=== PATIENT | male | born 1930 | race Caucasian/White ===

== ENCOUNTER 2016-11-14 05:53 | Inpatient (IN) | payer MEDICARE, BC ==
[~2016-11-14] VITALS: Ht 170.2 cm; Wt 70.6 kg
[2016-11-14] MEDS ORDERED: OPTIRAY 350 100 ML VIAL HMH IV ONE (05:54)
[2016-11-14] MEDS ORDERED: ONDANSETRON 4 MG VIAL ONE ×2 (06:20→07:36)
[2016-11-14] MEDS ORDERED: SODIUM CHLORIDE 0.9% 500 ML IV ONE ×2 (06:21→18:30)
[2016-11-14] MEDS ORDERED: MORPHINE 4 MG/ML SYR ONE (06:21)
[2016-11-14] MEDS ORDERED: DILAUDID 1 MG/ML AMP ONE (07:36)
[2016-11-14] MEDS ORDERED: METOCLOPRAMIDE 10 MG/2 ML VIAL ONE (07:54)
[2016-11-14] MEDS ORDERED: DIPHENHYDRAMINE 50 MG/ML VIAL ONE (07:54)
[2016-11-14] MEDS ORDERED: SODIUM CHLORIDE 0.9% 1,000 ML IV SCH (11:00)
[2016-11-14] MEDS ORDERED: GLUCAGON 1 MG VIAL IM PRN (11:00)
[2016-11-14] MEDS ORDERED: DEXTROSE 50% SYRINGE 50 ML IV PRN (11:00)
[2016-11-14] MEDS ORDERED: PROMETHAZINE 25 MG/ML VIAL IV PRN (11:00)
[2016-11-14] MEDS ORDERED: SALINE FLUSH 10 ML FLUSH PRN (11:00)
[2016-11-14 12:39] VITALS: BP_SYST 108; BP_SYST 109; RESP 12; TEMP 97.6
[2016-11-14 12:40] VITALS: Ht 170.2 cm; Wt 70.6 kg
[2016-11-14] MEDS: LORAZEPAM 0.5 MG TAB PO SCH (12:58)
[2016-11-14] MEDS: ONDANSETRON 4 MG VIAL IV PRN ×2 (14:19→20:32)
[2016-11-14] MEDS: SODIUM CHLORIDE 0.9% 1,000 ML IV SCH (14:19)
[2016-11-14] MEDS: METRONIDAZOLE 500MG/100ML 100 ML IV SCH ×3 (15:51→16:01)
[2016-11-14 15:55] VITALS: BP_SYST 120; RESP 14; TEMP 98.6
[2016-11-14] MEDS: CEFTRIAXONE 1 GM in SODIUM CHLORIDE 0.9% 50 ML IV SCH (16:34)
[2016-11-14 19:52] VITALS: BP_SYST 101; RESP 22; TEMP 100.3
[2016-11-14] MEDS: FAMOTIDINE 20 MG INJ IV SCH (20:32)
[2016-11-14] MEDS: SALINE FLUSH 10 ML FLUSH SCH (20:33)
[2016-11-14] MEDS: MORPHINE 2 MG/ML SYR IV PRN (20:50)
[2016-11-14 22:08] VITALS: BP_SYST 101; RESP 24; TEMP 98.3
[2016-11-15] VITALS (9 sets, daily range): BP systolic 102–131; RESP 16–24; TEMP 97.4–99.3
[2016-11-15] MEDS: METRONIDAZOLE 500MG/100ML 100 ML IV SCH ×4 (00:06→17:15)
[2016-11-15] MEDS: SODIUM CHLORIDE 0.9% 1,000 ML IV SCH (01:55)
[2016-11-15] MEDS ORDERED: SODIUM CHLORIDE 0.9% 1,000 ML IV SCH ×2 (05:05→09:25)
[2016-11-15] MEDS ORDERED: SODIUM CHLORIDE 0.9% 500 ML IV ONE ×2 (05:05→18:20)
[2016-11-15] MEDS: SODIUM CHLORIDE 0.9% FLUSH BAG 500 ML IV SCH (05:11)
[2016-11-15] MEDS: MORPHINE 2 MG/ML SYR IV PRN ×2 (05:15→13:44)
[2016-11-15] MEDS: ONDANSETRON 4 MG VIAL IV PRN (05:15)
[2016-11-15] MEDS: SALINE FLUSH 10 ML FLUSH SCH ×2 (08:03→20:14)
[2016-11-15] MEDS: FAMOTIDINE 20 MG INJ IV SCH ×2 (08:03→20:15)
[2016-11-15] MEDS: CEFTRIAXONE 1 GM in SODIUM CHLORIDE 0.9% 50 ML IV SCH (08:04)
[2016-11-15] MEDS: LORAZEPAM 0.5 MG TAB PO SCH (08:05)
[2016-11-15] MEDS ORDERED: MAGNESIUM SULF 1 GM/100 ML 100 ML IV ONE (09:25)
[2016-11-15] MEDS ORDERED: SOLU-CORTEF 100 MG/2 ML IV ONE (09:25)
[2016-11-15] MEDS: DUONEB INH SCH ×4 (09:25→23:11)
[2016-11-15] MEDS: NEB-BUDESONIDE 0.5 MG INH SCH ×2 (12:05→18:59)
[2016-11-15] MEDS: METOCLOPRAMIDE 10 MG/2 ML VIAL IV PUSH SCH ×2 (12:23→17:15)
[2016-11-15] MEDS: HYDROCORTISONE 250 MG/2 ML IV SCH ×2 (17:13→20:15)
[2016-11-16] MEDS: METRONIDAZOLE 500MG/100ML 100 ML IV SCH ×4 (00:28→17:23)
[2016-11-16] MEDS: METOCLOPRAMIDE 10 MG/2 ML VIAL IV PUSH SCH ×4 (00:28→17:23)
[2016-11-16 03:48] VITALS: BP_SYST 134; RESP 20; TEMP 98
[2016-11-16] MEDS: SODIUM CHLORIDE 0.9% FLUSH BAG 500 ML IV SCH (05:32)
[2016-11-16] MEDS ORDERED: CHLORASEPTIC 180 ML BTL PO PRN (06:20)
[2016-11-16] MEDS: NEB-BUDESONIDE 0.5 MG INH SCH ×2 (06:54→18:29)
[2016-11-16] MEDS: DUONEB INH SCH ×4 (06:54→23:35)
[2016-11-16 07:32] VITALS: BP_SYST 109; RESP 16; TEMP 97.7
[2016-11-16] MEDS: SALINE FLUSH 10 ML FLUSH SCH ×2 (07:59→20:00)
[2016-11-16] MEDS: FAMOTIDINE 20 MG INJ IV SCH (08:02)
[2016-11-16] MEDS: HYDROCORTISONE 250 MG/2 ML IV SCH (08:02)
[2016-11-16] MEDS: CEFTRIAXONE 1 GM in SODIUM CHLORIDE 0.9% 50 ML IV SCH (08:08)
[2016-11-16] MEDS: LORAZEPAM 0.5 MG TAB PO SCH (08:21)
[2016-11-16 11:45] VITALS: BP_SYST 115; RESP 16; TEMP 97.4
[2016-11-16 16:00] VITALS: BP_SYST 126; RESP 16; TEMP 97.5
[2016-11-16] MEDS ORDERED: SODIUM CHLORIDE 0.9% 1,000 ML IV SCH (16:00)
[2016-11-16] MEDS: TAMSULOSIN 0.4 MG CAP PO SCH (17:22)
[2016-11-16] MEDS: PREDNISONE 10 MG TAB PO SCH (17:22)
[2016-11-16] MEDS: MONTELUKAST 10 MG TAB PO SCH (17:22)
[2016-11-16] MEDS: MEMANTINE 10 MG TAB PO SCH (17:22)
[2016-11-16] MEDS: SERTRALINE 100 MG TAB PO SCH (17:22)
[2016-11-16 19:43] VITALS: BP_SYST 119; RESP 16; TEMP 97.9
[2016-11-16] MEDS ORDERED: SOLU-CORTEF 100 MG/2 ML IV SCH (20:00)
[2016-11-16] MEDS: PANTOPRAZOLE 40 MG TAB PO SCH (21:20)
[2016-11-16] MEDS: Carvedilol 6.25 MG TAB PO SCH (21:20)
[2016-11-16 23:15] VITALS: BP_SYST 119; RESP 16; TEMP 98.2
[2016-11-17] MEDS: METOCLOPRAMIDE 10 MG/2 ML VIAL IV PUSH SCH ×2 (00:14→06:04)
[2016-11-17] MEDS: METRONIDAZOLE 500MG/100ML 100 ML IV SCH ×4 (00:15→17:45)
[2016-11-17] MEDS: SODIUM CHLORIDE 0.9% 1,000 ML IV SCH ×2 (03:10→17:24)
[2016-11-17 03:27] VITALS: BP_SYST 112; RESP 18; TEMP 97.7
[2016-11-17] MEDS: SODIUM CHLORIDE 0.9% FLUSH BAG 500 ML IV SCH (04:08)
[2016-11-17 07:32] VITALS: BP_SYST 111; RESP 20; TEMP 97.4
[2016-11-17] MEDS: NEB-BUDESONIDE 0.5 MG INH SCH ×2 (07:41→18:25)
[2016-11-17] MEDS: DUONEB INH SCH ×4 (07:41→23:30)
[2016-11-17] MEDS: SALINE FLUSH 10 ML FLUSH SCH ×2 (08:00→19:29)
[2016-11-17] MEDS: MONTELUKAST 10 MG TAB PO SCH (08:27)
[2016-11-17] MEDS: Carvedilol 6.25 MG TAB PO SCH ×2 (08:27→21:12)
[2016-11-17] MEDS: MEMANTINE 10 MG TAB PO SCH (08:27)
[2016-11-17] MEDS: LORAZEPAM 0.5 MG TAB PO SCH (08:27)
[2016-11-17] MEDS: TAMSULOSIN 0.4 MG CAP PO SCH (08:27)
[2016-11-17] MEDS: PREDNISONE 10 MG TAB PO SCH (08:27)
[2016-11-17] MEDS: SERTRALINE 100 MG TAB PO SCH (08:27)
[2016-11-17] MEDS: CEFTRIAXONE 1 GM in SODIUM CHLORIDE 0.9% 50 ML IV SCH (08:27)
[2016-11-17 10:41] VITALS: BP_SYST 105; RESP 18; TEMP 97.6
[2016-11-17] MEDS: CETIRIZINE 10 MG TAB PO SCH (14:22)
[2016-11-17] MEDS: IPRATROPIUM 0.06% NARE EACH SCH ×3 (14:23→21:12)
[2016-11-17] MEDS: TUSSIONEX SUSP UDC PO SCH ×2 (14:27→21:31)
[2016-11-17 14:43] VITALS: BP_SYST 99; RESP 18; TEMP 97.8
[2016-11-17 19:23] VITALS: BP_SYST 126; RESP 18; TEMP 98
[2016-11-17] MEDS: ENOXAPARIN 30 MG/0.3 ML SYR SUBQ SCH (19:26)
[2016-11-17] MEDS: MORPHINE 2 MG/ML SYR IV PRN (19:28)
[2016-11-17] MEDS: PANTOPRAZOLE 40 MG TAB PO SCH (21:11)
[2016-11-17] MEDS ORDERED: MISSING DOSE XX ONE (21:15)
[2016-11-17 23:45] VITALS: BP_SYST 120; RESP 20; TEMP 98
[2016-11-18] MEDS ORDERED: QUEtiapine 25 MG TAB PO ONE (00:25)
[2016-11-18] MEDS: SODIUM CHLORIDE 0.9% 1,000 ML IV SCH (00:46)
[2016-11-18] MEDS: METRONIDAZOLE 500MG/100ML 100 ML IV SCH ×3 (00:46→12:30)
[2016-11-18 05:03] VITALS: BP_SYST 135; RESP 20; TEMP 97.8
[2016-11-18] MEDS: SODIUM CHLORIDE 0.9% FLUSH BAG 500 ML IV SCH (06:00)
[2016-11-18] MEDS: IPRATROPIUM 0.06% NARE EACH SCH ×4 (07:00→18:01)
[2016-11-18] MEDS: DUONEB INH SCH ×3 (07:23→11:39)
[2016-11-18] MEDS: NEB-BUDESONIDE 0.5 MG INH SCH (07:23)
[2016-11-18 07:47] VITALS: BP_SYST 128; RESP 15; TEMP 97.4
[2016-11-18] MEDS ORDERED: MISSING DOSE XX ONE (09:25)
[2016-11-18] MEDS: LORAZEPAM 0.5 MG TAB PO SCH ×2 (09:26→21:23)
[2016-11-18] MEDS: PREDNISONE 10 MG TAB PO SCH (09:26)
[2016-11-18] MEDS: TAMSULOSIN 0.4 MG CAP PO SCH (09:26)
[2016-11-18] MEDS: SALINE FLUSH 10 ML FLUSH SCH ×2 (09:26→21:24)
[2016-11-18] MEDS: CEFTRIAXONE 1 GM in SODIUM CHLORIDE 0.9% 50 ML IV SCH (09:26)
[2016-11-18] MEDS: CETIRIZINE 10 MG TAB PO SCH (09:27)
[2016-11-18] MEDS: MEMANTINE 10 MG TAB PO SCH (09:27)
[2016-11-18] MEDS: SERTRALINE 100 MG TAB PO SCH (09:27)
[2016-11-18] MEDS: Carvedilol 6.25 MG TAB PO SCH ×2 (09:27→21:24)
[2016-11-18] MEDS: MONTELUKAST 10 MG TAB PO SCH (09:27)
[2016-11-18] MEDS: TUSSIONEX SUSP UDC PO SCH (10:11)
[2016-11-18] MEDS: ENOXAPARIN 30 MG/0.3 ML SYR SUBQ SCH (10:11)
[2016-11-18 11:34] VITALS: BP_SYST 121; RESP 15; TEMP 97.5
[2016-11-18] MEDS ORDERED: Furosemide 40 MG/4 ML VIAL IV ONE (15:20)
[2016-11-18 15:50] VITALS: BP_SYST 131; RESP 15; TEMP 97.4
[2016-11-18] MEDS: KCL CR 8 MEQ TAB PO SCH ×2 (15:52→21:23)
[2016-11-18] MEDS: METRONIDAZOLE 500 MG TAB PO SCH ×2 (17:58→21:23)
[2016-11-18] MEDS: ACETAMINOPHEN 325 MG TAB PO PRN (18:04)
[2016-11-18 19:22] VITALS: BP_SYST 143; RESP 16; TEMP 97.5
[2016-11-18] MEDS: QUEtiapine 25 MG TAB PO SCH (21:23)
[2016-11-18] MEDS: PANTOPRAZOLE 40 MG TAB PO SCH (21:23)
[2016-11-18 23:19] VITALS: BP_SYST 152; RESP 18; TEMP 98.4
[2016-11-19] MEDS: SODIUM CHLORIDE 0.9% FLUSH BAG 500 ML IV SCH (05:07)
[2016-11-19 07:54] VITALS: BP_SYST 158; RESP 18; TEMP 98.2
[2016-11-19] MEDS: SALINE FLUSH 10 ML FLUSH SCH ×2 (08:41→22:01)
[2016-11-19] MEDS: CEFTRIAXONE 1 GM in SODIUM CHLORIDE 0.9% 50 ML IV SCH (08:41)
[2016-11-19] MEDS: MONTELUKAST 10 MG TAB PO SCH (08:43)
[2016-11-19] MEDS: MEMANTINE 10 MG TAB PO SCH (08:43)
[2016-11-19] MEDS: CETIRIZINE 10 MG TAB PO SCH (08:43)
[2016-11-19] MEDS: Carvedilol 6.25 MG TAB PO SCH ×2 (08:43→22:02)
[2016-11-19] MEDS: TAMSULOSIN 0.4 MG CAP PO SCH (08:43)
[2016-11-19] MEDS: ACETAMINOPHEN 325 MG TAB PO PRN ×2 (08:43→19:36)
[2016-11-19] MEDS: PREDNISONE 10 MG TAB PO SCH (08:43)
[2016-11-19] MEDS: METRONIDAZOLE 500 MG TAB PO SCH ×3 (08:43→22:02)
[2016-11-19] MEDS: SERTRALINE 100 MG TAB PO SCH (08:43)
[2016-11-19] MEDS: ENOXAPARIN 30 MG/0.3 ML SYR SUBQ SCH (08:44)
[2016-11-19] MEDS: IPRATROPIUM 0.06% NARE EACH SCH ×4 (08:51→22:39)
[2016-11-19 11:02] VITALS: BP_SYST 127; RESP 20; TEMP 98
[2016-11-19 15:06] VITALS: BP_SYST 129; RESP 18; TEMP 98.1
[2016-11-19 19:40] VITALS: BP_SYST 107; RESP 16; TEMP 97.3
[2016-11-19] MEDS: PANTOPRAZOLE 40 MG TAB PO SCH (22:02)
[2016-11-19] MEDS: QUEtiapine 25 MG TAB PO SCH (22:03)
[2016-11-19] MEDS: LORAZEPAM 0.5 MG TAB PO SCH (22:11)
[2016-11-20] MEDS: SODIUM CHLORIDE 0.9% FLUSH BAG 500 ML IV SCH (06:17)
[2016-11-20 07:22] VITALS: BP_SYST 139; RESP 18; TEMP 98.1
[2016-11-20] MEDS: SALINE FLUSH 10 ML FLUSH SCH ×2 (08:25→22:03)
[2016-11-20] MEDS: PREDNISONE 10 MG TAB PO SCH (08:26)
[2016-11-20] MEDS: TAMSULOSIN 0.4 MG CAP PO SCH (08:26)
[2016-11-20] MEDS: CEFTRIAXONE 1 GM in SODIUM CHLORIDE 0.9% 50 ML IV SCH (08:26)
[2016-11-20] MEDS: Carvedilol 6.25 MG TAB PO SCH ×2 (08:26→21:45)
[2016-11-20] MEDS: MEMANTINE 10 MG TAB PO SCH (08:26)
[2016-11-20] MEDS: METRONIDAZOLE 500 MG TAB PO SCH ×3 (08:26→21:44)
[2016-11-20] MEDS: ENOXAPARIN 30 MG/0.3 ML SYR SUBQ SCH (08:27)
[2016-11-20] MEDS: SERTRALINE 100 MG TAB PO SCH (08:27)
[2016-11-20] MEDS: MONTELUKAST 10 MG TAB PO SCH (08:27)
[2016-11-20] MEDS: DUONEB INH SCH ×3 (09:20→22:56)
[2016-11-20] MEDS: LEVOTHYROXINE 0.025 MG TAB PO SCH (11:03)
[2016-11-20 11:04] VITALS: BP_SYST 127; RESP 18; TEMP 97.9
[2016-11-20 14:59] VITALS: BP_SYST 126; RESP 18; TEMP 98.1
[2016-11-20 19:29] VITALS: BP_SYST 127; RESP 16; TEMP 98.3
[2016-11-20] MEDS: PANTOPRAZOLE 40 MG TAB PO SCH (21:44)
[2016-11-20] MEDS: LORAZEPAM 0.5 MG TAB PO SCH (21:44)
[2016-11-20] MEDS: QUEtiapine 25 MG TAB PO SCH (21:45)
[2016-11-21] MEDS: DUONEB INH SCH (07:17)
[2016-11-21 07:24] VITALS: BP_SYST 127; RESP 18; TEMP 97.8
[2016-11-21] MEDS: ACETAMINOPHEN 325 MG TAB PO PRN (07:39)
[2016-11-21] MEDS: LEVOTHYROXINE 0.025 MG TAB PO SCH (07:39)
[2016-11-21] MEDS: SODIUM CHLORIDE 0.9% FLUSH BAG 500 ML IV SCH (07:43)
[2016-11-21] MEDS ORDERED: MISSING DOSE XX ONE (08:40)
[2016-11-21] MEDS ORDERED: LORAZEPAM 0.5 MG TAB PO SCH (08:40)
[2016-11-21] MEDS: SALINE FLUSH 10 ML FLUSH SCH (09:14)
[2016-11-21] MEDS: Carvedilol 6.25 MG TAB PO SCH (09:15)
[2016-11-21] MEDS: ENOXAPARIN 30 MG/0.3 ML SYR SUBQ SCH (09:15)
[2016-11-21] MEDS: PREDNISONE 10 MG TAB PO SCH (09:15)
[2016-11-21] MEDS: METRONIDAZOLE 500 MG TAB PO SCH (09:15)
[2016-11-21] MEDS: MEMANTINE 10 MG TAB PO SCH (09:15)
[2016-11-21] MEDS: SERTRALINE 100 MG TAB PO SCH (09:15)
[2016-11-21] MEDS: MONTELUKAST 10 MG TAB PO SCH (09:15)
[2016-11-21] MEDS: CEFTRIAXONE 1 GM in SODIUM CHLORIDE 0.9% 50 ML IV SCH (09:15)
[2016-11-21] MEDS: TAMSULOSIN 0.4 MG CAP PO SCH (09:15)
[2016-11-21 10:10] VITALS: BP_SYST 127; RESP 18; TEMP 97.8
[2016-11-21 11:02] VITALS: BP_SYST 117; RESP 16; TEMP 97.8
== END 2016-11-21 12:21 | disposition home or self-care (01) | DRG 388 ==
LOC: ENRESERVTM → ENRESERVDT → ER 05:53 → ENPENDDIS 10:59 → EMR 10:59 → 5THE 12:24
PROVIDERS: ADMIT Internal Medicine; ATTEND Internal Medicine
CPT/HCPCS: 36415; 36600; 71010; 74020; 74177; 74250; 80048; 80053; 81001; 82553; 82947; 83036; 83605; 83690; 83735; 83880; 84439; 84443; 84484; 85025; 85610; 85652; 85730; 93005; 94640; 94799; 96361; 96374; 96375; 96376